=== PATIENT | female | born 1990 | race Caucasian/White ===

== ENCOUNTER 2022-02-16 13:10 | Inpatient (IN) | payer MEDICAID ==
[~2022-02-16] VITALS: Ht 164 cm; Wt 90.7 kg
[2022-02-16] MEDS: LACTATED RINGERS 1,000 ML IV SCH ×2 (00:23→15:13)
[2022-02-16] MEDS ORDERED: PRETAB PO (13:43)
[2022-02-16] MEDS ORDERED: NALBUPHINE 10 MG/ML AMP IVP PRN ×2 (13:45→13:50)
[2022-02-16] MEDS ORDERED: LACTATED RINGERS 1,000 ML IV SCH (13:45)
[2022-02-16] MEDS ORDERED: CARBOPROST 250 MCG/ML AMP IM PRN ×2 (13:45→13:50)
[2022-02-16] MEDS ORDERED: METHYLERGONOVINE 0.2 MG/ML AMP IM PRN ×2 (13:45→13:50)
[2022-02-16] MEDS ORDERED: LACTATED RINGERS 500 ML IV SCH (13:45)
[2022-02-16] MEDS ORDERED: PROMETHAZINE 25 MG/ML VIAL IVP PRN ×2 (13:45→13:50)
[2022-02-16] MEDS ORDERED: OXYTOCIN 10 UNITS/ML VIAL IM SCH (13:50)
[2022-02-16] MEDS ORDERED: MISOPROSTOL 25 MCG TAB ONE (14:47)
[2022-02-16 15:14] LABS: BASOPHILS % (AUTO) 0.3 % (0.0-2.0); EOSINOPHILS # (AUTO) 0.1 K/uL (0-0.4); EOSINOPHILS % (AUTO) 0.6 % (0.0-4.0); HEMATOCRIT 37.7 % (36-48); HEMOGLOBIN 12.6 g/dL (12.0-16.0); LYMPHOCYTES # (AUTO) 1.9 K/uL (2.5-16.5); LYMPHOCYTES % (AUTO) 15.3 % (20.5-51.1); MEAN CORPUSCULAR HEMOGLOBIN 29 pg (27-31); MEAN CORPUSCULAR HGB CONC 33 g/dL (33-37); MEAN CORPUSCULAR VOLUME 88.1 fL (80-94); MONOCYTES # (AUTO) 1.3 K/uL (0.8-1.0); MONOCYTES % (AUTO) 10.9 % (1.7-9.3); NEUTROPHILS # (AUTO) 8.9 K/uL (1.8-7.7); NEUTROPHILS % (AUTO) 72.9 % (42.2-75.2); PLATELET COUNT (AUTO) 267 K/uL (140-450); RED BLOOD CELL COUNT(AUTO) 4.27 MIL/uL (4.20-5.40); RED CELL DISTRIBUTION WIDTH 15.2 % (11.6-13.7); WHITE BLOOD COUNT (AUTO) 12.2 K/uL (4.8-10.8)
[2022-02-16 15:27] LABS: APPEARANCE,URINE CLEAR (CLEAR); BILIRUBIN,URINE NEGATIVE (NEGATIVE); BLOOD, URINE NEGATIVE (NEGATIVE); COLOR,URINE YELLOW (YELLOW); LEUKOCYTE ESTERASE ,URINE NEGATIVE (NEGATIVE); NITRITE, URINE NEGATIVE (NEGATIVE); PH,URINE 6.5 (5.0-9.0); UGLUCOSE NEGATIVE (NEGATIVE)
[2022-02-16 15:31] LABS: ALBUMIN 2.5 g/dL (3.4-5.0); ANION GAP 13.2 (8-16); CARBON DIOXIDE 23.5 mmol/L (21-32); CREATININE 0.5 mg/dL (0.6-1.3); POTASSIUM 3.7 mmol/L (3.5-5.1); TOTAL BILIRUBIN 0.3 mg/dL (0.0-1.0)
[2022-02-16] MEDS ORDERED: MISOPROSTOL 25 MCG TAB VG SCH (16:00)
[2022-02-16] MEDS ORDERED: CITRIC ACID/SODIUM CITRATE 30 ML UDC PO SCH (19:30)
[2022-02-17] MEDS: LACTATED RINGERS 1,000 ML IV SCH (07:46)
[2022-02-17 09:57] LABS: PROTHROMBIN TIME 9.6 secs (10.8-13.4)
--- NOTE | 2022-02-17 10:08 | NUR ---
PATIENT HAS BEEN SCREENED AND CATEGORIZED LOW NUTRITION RISK. PATIENT WILL BE SEEN WITHIN 7 DAYS OF ADMISSION. 02/23/[address]
[2022-02-17] MEDS ORDERED: MORPHINE PRES FREE 10 MG/10 ML AMP IV ONE (11:31)
[2022-02-17] MEDS ORDERED: oxyCODONE/APAP 5/325 MG 1 TAB TAB PO PRN (11:45)
[2022-02-17] MEDS ORDERED: KETOROLAC 30 MG/ML VIAL IVP PRN (11:45)
[2022-02-17] MEDS ORDERED: TEMAZEPAM 15 MG CAP PO PRN (11:45)
[2022-02-17] MEDS ORDERED: IBUPROFEN 800 MG TAB PO PRN (11:45)
[2022-02-17] MEDS ORDERED: METHYLERGONOVINE 0.2 MG/ML AMP IM PRN (11:45)
[2022-02-17 12:01] LABS: BASOPHILS # (AUTO) 0.1 K/uL (0.00-0.22); BASOPHILS % (AUTO) 0.6 % (0.0-2.0); EOSINOPHILS # (AUTO) 0.1 K/uL (0-0.4); EOSINOPHILS % (AUTO) 0.7 % (0.0-4.0); HEMATOCRIT 35.4 % (36-48); HEMOGLOBIN 11.9 g/dL (12.0-16.0); LYMPHOCYTES # (AUTO) 2.3 K/uL (2.5-16.5); LYMPHOCYTES % (AUTO) 20.2 % (20.5-51.1); MEAN CORPUSCULAR HEMOGLOBIN 30 pg (27-31); MEAN CORPUSCULAR HGB CONC 34 g/dL (33-37); MEAN CORPUSCULAR VOLUME 88.5 fL (80-94); MONOCYTES # (AUTO) 1.2 K/uL (0.8-1.0); MONOCYTES % (AUTO) 10.3 % (1.7-9.3); NEUTROPHILS # (AUTO) 7.8 K/uL (1.8-7.7); NEUTROPHILS % (AUTO) 68.2 % (42.2-75.2); PLATELET COUNT (AUTO) 248 K/uL (140-450); RED CELL DISTRIBUTION WIDTH 15.6 % (11.6-13.7); WHITE BLOOD COUNT (AUTO) 11.5 K/uL (4.8-10.8)
[2022-02-17] MEDS ORDERED: ONDANSETRON 4 MG/2 ML VIAL IVP PRN ×2 (13:15→14:35)
[2022-02-17] MEDS ORDERED: NALOXONE 0.4 MG/ML VIAL IVP PRN ×6 (13:15→14:35)
[2022-02-17] MEDS ORDERED: diphenhydrAMINE 50 MG/ML VIAL IVP PRN ×2 (13:15→14:35)
[2022-02-17] MEDS: OXYTOCIN 20 UNITS in LACTATED RINGERS 1,000 ML IV SCH ×3 (13:40→23:10)
[2022-02-17] MEDS ORDERED: KETOROLAC 30 MG/ML VIAL IM/IVP SCH (18:00)
[2022-02-17] MEDS: KETOROLAC 30 MG/ML VIAL IM/IVP SCH (18:23)
[2022-02-17] MEDS: DOCUSATE SOD/SENNA 50/8.6 MG 1 TAB PO SCH (21:00)
[2022-02-17] MEDS ORDERED: OXYTOCIN 20 UNITS/LR PREMIX 1,000 ML IV ONE (22:45)
[2022-02-18] MEDS: KETOROLAC 30 MG/ML VIAL IM/IVP SCH ×2 (00:09→05:42)
[2022-02-18] MEDS ORDERED: OXYTOCIN 20 UNITS/LR PREMIX 1,000 ML IV ONE (06:02)
[2022-02-18 06:17] LABS: BASOPHILS # (AUTO) 0.1 K/uL (0.00-0.22); BASOPHILS % (AUTO) 0.7 % (0.0-2.0); EOSINOPHILS # (AUTO) 0.1 K/uL (0-0.4); EOSINOPHILS % (AUTO) 0.5 % (0.0-4.0); HEMATOCRIT 34.2 % (36-48); HEMOGLOBIN 11.4 g/dL (12.0-16.0); LYMPHOCYTES # (AUTO) 1.8 K/uL (2.5-16.5); LYMPHOCYTES % (AUTO) 13.1 % (20.5-51.1); MEAN CORPUSCULAR HEMOGLOBIN 30 pg (27-31); MEAN CORPUSCULAR HGB CONC 33 g/dL (33-37); MEAN CORPUSCULAR VOLUME 88.7 fL (80-94); MONOCYTES # (AUTO) 1.5 K/uL (0.8-1.0); MONOCYTES % (AUTO) 10.6 % (1.7-9.3); NEUTROPHILS # (AUTO) 10.4 K/uL (1.8-7.7); NEUTROPHILS % (AUTO) 75.1 % (42.2-75.2); PLATELET COUNT (AUTO) 217 K/uL (140-450); RED BLOOD CELL COUNT(AUTO) 3.85 MIL/uL (4.20-5.40); RED CELL DISTRIBUTION WIDTH 14.9 % (11.6-13.7); WHITE BLOOD COUNT (AUTO) 13.8 K/uL (4.8-10.8)
[2022-02-18] MEDS: OXYTOCIN 20 UNITS in LACTATED RINGERS 1,000 ML IV SCH (06:55)
[2022-02-18] MEDS ORDERED: AMMONIA AROMATIC 1 INHL INH ONE (12:43)
[2022-02-18] MEDS: SIMETHICONE 80 MG TAB.CHEW PO PRN (13:46)
[2022-02-18] MEDS: oxyCODONE/APAP 5/325 MG 1 TAB TAB PO PRN (13:46)
[2022-02-18] MEDS: DOCUSATE SOD/SENNA 50/8.6 MG 1 TAB PO SCH (21:08)
[2022-02-18] MEDS: IBUPROFEN 800 MG TAB PO PRN (22:40)
[2022-02-18] MEDS ORDERED: CAMERA MC ONE (23:01)
[2022-02-19] MEDS: IBUPROFEN 800 MG TAB PO PRN (06:32)
[2022-02-19] MEDS: SIMETHICONE 80 MG TAB.CHEW PO PRN ×2 (09:10→13:27)
[2022-02-19] MEDS: oxyCODONE/APAP 5/325 MG 1 TAB TAB PO PRN ×2 (13:31→20:30)
[2022-02-19] MEDS: DOCUSATE SOD/SENNA 50/8.6 MG 1 TAB PO SCH (21:15)
[2022-02-20] MEDS ORDERED: CAMERA MC ONE (03:04)
[2022-02-20] MEDS: oxyCODONE/APAP 5/325 MG 1 TAB TAB PO PRN (08:00)
[2022-02-20] MEDS ORDERED: AMMONIA AROMATIC 1 INHL INH ONE (08:10)
== END 2022-02-20 12:30 | disposition home or self-care (01) | DRG 540 ==
LOC: MLD 13:10 → OBSVTOIN 13:30 → MFCC 13:31
PROVIDERS: ADMIT Obstetrics & Gynecology; ATTEND Obstetrics & Gynecology
PROC: 10D00Z1 Extraction of Products of Conception, Low, Open Approach (ICD-10-PCS; principal; 2022-02-17 11:30)
DX: O32.2XX0 Maternal care for transverse and oblique lie, not applicable or unspecified (principal); O24.429 Gestational diabetes mellitus in childbirth, unspecified control; Z3A.39 39 weeks gestation of pregnancy; Z37.0 Single live birth; Z20.822 Contact with and (suspected) exposure to COVID-19
CPT/HCPCS: 36415; 51702; 76815; 80053; 81003; 85025; 85610; 85730; 86592; 86886; 86900; 86901; J0690; J1885; J2270; J2590; J7060; J7120; Q0092